=== PATIENT | female | born 1995 | race Caucasian/White ===

== ENCOUNTER 2023-05-25 14:34 | Emergency (ER) | payer OTHER ==
[~2023-05-25] VITALS: Ht 162.6 cm; Wt 54.9 kg
[2023-05-25] MEDS: ONDANSETRON 4 MG TAB.RAPDIS SL ONE (15:57)
[2023-05-25] MEDS: ACETAMINOPHEN ES 500 MG TABLET PO ONE (15:57)
[2023-05-25] MEDS ORDERED: ONDANSETRON 4 MG TAB.RAPDIS ONE (15:57)
[2023-05-25] MEDS ORDERED: ACETAMINOPHEN ES 500 MG TABLET ONE (15:57)
[2023-05-25] MEDS ORDERED: ONDA4TAB11 PO (17:07)
[2023-05-25 17:13] VITALS: BP 121/75; TEMP 98.1; O2SAT 99
== END 2023-05-25 17:13 | disposition home or self-care (01) ==
LOC: ER 14:40
DX: S06.0X0A Concussion without loss of consciousness, initial encounter (principal); V49.9XXA Car occupant (driver) (passenger) injured in unspecified traffic accident, initial encounter; Y93.89 Activity, other specified; Y92.89 Other specified places as the place of occurrence of the external cause; Y99.8 Other external cause status
CPT/HCPCS: 99284; 70450; Q0162

== ENCOUNTER 2023-09-22 03:24 | Emergency (ER) | payer OTHER ==
[~2023-09-22] VITALS: Ht 162.6 cm; Wt 65.8 kg
[~2023-09-22 03:24] MED LIST: ONDA4TAB11 PO
[2023-09-22 03:32] VITALS: BP 132/84; TEMP 98.2; O2SAT 98
[2023-09-22] MEDS ORDERED: FLUC150T PO (03:48)
[2023-09-22] MEDS ORDERED: FLUCONAZOLE (100 MG) 100 MG TABLET ONE (03:56)
[2023-09-22] MEDS: FLUCONAZOLE (100 MG) 100 MG TABLET PO ONE (03:57)
[2023-09-22] MEDS ORDERED: CLOT21CR12 VG (04:07)
== END 2023-09-22 04:48 | disposition home or self-care (01) ==
LOC: ER 03:24
DX: B37.31 Acute candidiasis of vulva and vagina (principal); Z79.899 Other long term (current) drug therapy

== ENCOUNTER 2023-10-21 15:36 | Emergency (ER) | payer OTHER ==
[~2023-10-21] VITALS: Ht 160 cm; Wt 56.7 kg
[~2023-10-21 15:36] MED LIST changes: +CLOT21CR12 VG; +FLUC150T PO
[2023-10-21 16:07] VITALS: BP 134/62; TEMP 98.3; O2SAT 99
== END 2023-10-21 17:29 | disposition home or self-care (01) ==
LOC: ER 15:43
DX: S61.511A Laceration without foreign body of right wrist, initial encounter (principal); R20.2 Paresthesia of skin; R20.0 Anesthesia of skin; W25.XXXA Contact with sharp glass, initial encounter; Y93.89 Activity, other specified; Y92.89 Other specified places as the place of occurrence of the external cause; Y99.8 Other external cause status

== ENCOUNTER 2024-01-26 06:25 | Emergency (ER) | payer OTHER ==
[~2024-01-26] VITALS: Ht 160 cm; Wt 54.4 kg
[2024-01-26 07:08] LABS: APPEARANCE,URINE SLIGHTLY CLOUDY (CLEAR); BILIRUBIN,URINE NEGATIVE (NEGATIVE); BLOOD, URINE 2+ Ery/uL (NEGATIVE); COLOR,URINE YELLOW (YELLOW); KETONES,URINE NEGATIVE (NEGATIVE); LEUKOCYTE ESTERASE ,URINE 2+ (NEGATIVE); NITRITE, URINE POSITIVE (NEGATIVE); PROTEIN,URINE 2+ mg/dl (NEGATIVE); UGLUCOSE NEGATIVE (NEGATIVE)
[2024-01-26 07:12] LABS: PREGNANCY TEST URINE QUAL NEGATIVE (NEGATIVE)
[2024-01-26 07:40] LABS: SQUAMOUS EPITHELIAL CELL,UR Few /HPF (None Seen)
[2024-01-26 07:42] LABS: BASOPHILS % (AUTO) 0.3 % (0.0-2.0); EOSINOPHILS # (AUTO) 0.1 K/uL (0.0-0.7); EOSINOPHILS % (AUTO) 1.3 % (0.0-6.0); HEMATOCRIT 39 % (33-45); HEMOGLOBIN 12.7 g/dL (11.5-14.8); LYMPHOCYTES # (AUTO) 1.8 K/uL (0.8-4.8); LYMPHOCYTES % (AUTO) 16.3 % (20.0-44.0); MEAN CORPUSCULAR HEMOGLOBIN 30 PG (26.0-33.0); MEAN CORPUSCULAR HGB CONC 33 g/dl (31.0-36.0); MEAN CORPUSCULAR VOLUME 92 fL (82-100); NEUTROPHILS # (AUTO) 8.2 K/uL (1.8-8.9); NEUTROPHILS % (AUTO) 73.1 % (43.0-81.0); PLATELET COUNT (AUTO) 235 K/uL (150-450); RED BLOOD CELL COUNT(AUTO) 4.23 MIL/uL (4.0-5.2); RED CELL DISTRIBUTION WIDTH 12.7 % (11.5-15.0); WHITE BLOOD COUNT (AUTO) 11.3 K/uL (4.3-11.0)
[2024-01-26 07:42] LABS: ADD URINE CULTURE YES; BACTERIA,URINE Moderate /HPF (None Seen); WBC,URINE 81-100 /HPF (0-3)
[2024-01-26 07:47] LABS: CALCIUM, SERUM 8.1 mg/dL (8.5-10.1); CREATININE 0.8 mg/dL (0.6-1.3)
[2024-01-26] MEDS ORDERED: NITR100C6 PO (07:56)
[2024-01-26] MEDS ORDERED: FLUC100T8 PO (08:02)
[2024-01-26 08:03] VITALS: BP 115/90; TEMP 97.9; O2SAT 97
== END 2024-01-26 08:04 | disposition home or self-care (01) ==
LOC: ER 06:25
DX: N39.0 Urinary tract infection, site not specified (principal); M54.59 Other low back pain
CPT/HCPCS: 36415; 80048-TC; 81001; 84703-TC; 85025-TC; 87086-TC